=== PATIENT | male | born 1945 | race Caucasian/White ===

== ENCOUNTER 2017-08-30 11:14 | Inpatient (IN) | payer MEDICARE ==
[~2017-08-30] VITALS: Ht 175.3 cm; Wt 65.1 kg
[2017-08-30 11:35] VITALS: BP 136/97; PULSE 109; RESP 18; TEMP 98.2; O2SAT 95
--- NOTE | 2017-08-30 12:53 | PD ---
HPI Chief Complaint: Complaint Time Seen by Provider: 12:53 Travel History International Travel<30 days: No Contact w/Intl Traveler<30days: No Traveled to known affect area: No History of Present Illness HPI 71-year-old male came to the emergency room with history of hematuria and urinary retention since last night. Patient says he was passing some clots last night. This morning he tried to void and few drops came out with blood. But he was unable to empty the entire bladder. No history of fever or chills. Patient has had this issue in the past. He had a TURP procedure done to his prostate in 2003. He also has history of renal calculus although there has not been any back or abdominal pain this time. Patient is on Coumadin for A. fib. He is from [place] and his doctors and urologist is in [place]. Patient is here to visit his who lives here. But he does not know when he is going to go back. Vital sign shows tachycardia but otherwise within acceptable limits. No history of pain. He is in discomfort because of the distended bladder. [facility] Past Medical History Narrative Medical List of his past medical, surgical, social and family history is reviewed from the nursing note. Social History Tobacco Use: No Allergies-Medications (Allergen,Severity, Reaction): Coded Allergies: No Known Allergies (Unverified , 08/30/17) Comments No known drug allergies. Reported Meds & Prescriptions Reported Meds & Active Scripts Active Reported Digox (Digoxin) 0.25 Mg Tab 0.25 Mg PO HS Ranitidine (Ranitidine HCl) 150 Mg Tab 150 Mg PO BID Warfarin 2 Mg Tab 2 Mg PO SUN,SUN Warfarin 4 Mg Tab 4 Mg PO MON,TUE,KAROLINE,FRI,SAT Simvastatin 40 Mg Tab 40 Mg PO HS Atenolol 25 Mg Tab 25 Mg PO DAILY Narrative Medication List of his home medications reviewed from the nursing note. Review of Systems Except as stated in HPI: all other systems reviewed are Neg Genitourinary: Positive: Hematuria, Decreased Urinary Output Physical Exam Narrative GENERAL: Awake, alert, anxious SKIN: Focused skin assessment warm/dry. HEAD: Atraumatic. Normocephalic. EYES: Pupils equal and round. No scleral icterus. No injection or drainage. ENT: No nasal bleeding or discharge. Mucous membranes pink and moist. NECK: Trachea midline. No JVD. CARDIOVASCULAR: Regular rate and rhythm. No murmur appreciated. RESPIRATORY: No accessory muscle use. Clear to auscultation. Breath sounds equal bilaterally. GASTROINTESTINAL: Abdomen soft, non-tender, nondistended. Suprapubic palpable mass extending all the way up to the umbilicus which is tender to touch MUSCULOSKELETAL: No obvious deformities. No clubbing. No cyanosis. No edema. NEUROLOGICAL: Awake and alert. No obvious cranial nerve deficits. Motor grossly within normal limits. Normal speech. PSYCHIATRIC: Appropriate mood and affect; insight and judgment normal. Data Data Last Documented VS Vital Signs Date Time Temp Pulse Resp B/P (MAP) Pulse Ox O2 Delivery O2 Flow Rate FiO2 08/30/17 11:35 98.2 109 18 136/97 (110) 95 Orders Orders Urinary Catheter Insert/Apply (08/30/17 13:03) Urinalysis - C+S If Indicated (08/30/17 13:03) Bladder/Catheter Irrigation (08/30/17 13:04) Complete Blood Count With Diff (08/30/17 13:04) Basic Metabolic Panel (Bmp) (08/30/17 13:04) Prothrombin Time / Inr (Pt) (08/30/17 13:04) Type And Screen (08/30/17 13:04) Ct Abd/Pel W/O Iv Contrast (08/30/17 ) Sodium Chlor 0.9% 1000 Ml Inj (Ns 1000 M (08/30/17 13:15) Phytonadione Inj (Vitamin K Inj) (08/30/17 14:15) Urine Culture (08/30/17 13:35) Ceftriaxone Inj (Rocephin Inj) (08/30/17 14:30) Admit Order (Ed Use Only) (08/30/17 15:11) Labs Laboratory Tests Test 08/30/17 13:20 08/30/17 13:35 White Blood Count 12.4 TH/MM3 Red Blood Count 4.86 MIL/MM3 Hemoglobin 14.2 GM/DL Hematocrit 42.6 % Mean Corpuscular Volume 87.7 FL Mean Corpuscular Hemoglobin 29.3 PG Mean Corpuscular Hemoglobin Concent 33.4 % Red Cell Distribution Width 14.0 % Platelet Count 300 TH/MM3 Mean Platelet Volume 8.5 FL Neutrophils (%) (Auto) 74.4 % Lymphocytes (%) (Auto) 18.4 % Monocytes (%) (Auto) 6.6 % Eosinophils (%) (Auto) 0.1 % Basophils (%) (Auto) 0.5 % Neutrophils # (Auto) 9.3 TH/MM3 Lymphocytes # (Auto) 2.3 TH/MM3 Monocytes # (Auto) 0.8 TH/MM3 Eosinophils # (Auto) 0.0 TH/MM3 Basophils # (Auto) 0.1 TH/MM3 CBC Comment DIFF FINAL Differential Comment Prothrombin Time 45.3 SEC Prothromb Time International Ratio 4.5 RATIO Blood Urea Nitrogen 22 MG/DL Creatinine 1.32 MG/DL Random Glucose 100 MG/DL Calcium Level 9.8 MG/DL Sodium Level 136 MEQ/L Potassium Level 4.3 MEQ/L Chloride Level 101 MEQ/L Carbon Dioxide Level 28.2 MEQ/L Anion Gap 7 MEQ/L Estimat Glomerular Filtration Rate 53 ML/MIN Urine Color DARK-RED Urine Turbidity TURBID Urine pH 6.5 Urine Specific [place] 1.021 Urine Protein 100 mg/dL Urine Glucose (UA) NEG mg/dL Urine Ketones 10 mg/dL Urine Occult Blood MOD Urine Nitrite NEG Urine Bilirubin NEG Urine Urobilinogen LESS THAN 2.0 MG/DL Urine Leukocyte Esterase MOD Urine RBC /hpf Urine WBC /hpf Urine Mucus MANY /lpf Microscopic Urinalysis Comment CATH-CULTURE IND MDM Medical Decision Making Medical Screen Exam Complete: Yes Emergency Medical Condition: Yes Medical Record Reviewed: Yes Differential Diagnosis Prostate hypertrophy, bladder obstruction, bladder tumor Narrative Course 2:[address] scan shows distended bladder with a Hayes catheter and possible blood clot. Blood test result shows slight leukocytosis but the H&H is stable. INR is 4.5. Chemistries pending. I had ordered for Hayes catheter with continuous ladder irrigation that the nurse has been doing. She says she has been getting quite a few clots out. However given the high INR I have ordered vitamin K. In my opinion patient should require admission till the INR is stable or as per the discretion of the urologist. I put a call out for the on- call urologist. Awaiting for his call back. 2:44 PM case was discussed with the urologist Dr. Lnidquist and as per him patient would require manual irrigation. He wants the patient to be medically admitted and he'll consult on the patient. Procedures EKG Prior to Arrival: No Physician Communication Physician Communication Dr. Hanson Diagnosis Primary Impression: Urinary obstruction Additional Impressions: Hematuria Qualified Codes: R31.0 - Gross hematuria UTI (urinary tract infection) Qualified Codes: N39.0 - Urinary tract infection, site not specified; R31.9 - Hematuria, unspecified Elevated INR Admitting Information Admitting Physician Requests: Admit Scripts Levofloxacin (Levaquin) 750 Mg Tablet 750 MG PO DAILY for Infection, #6 TAB 0 Refills Prov: Ashli Mckeon MD 08/31/17 Karishma Collazo MD Aug 30, 2017 12:53
[2017-08-30] MEDS ORDERED: WARF-20 PO (12:56)
[2017-08-30] MEDS ORDERED: WARF4TAB51 PO (12:56)
[2017-08-30] MEDS ORDERED: ATEN25TA PO (12:56)
[2017-08-30] MEDS ORDERED: DIGO0.12 PO (12:56)
[2017-08-30] MEDS ORDERED: RANI150T PO (12:56)
[2017-08-30] MEDS ORDERED: SIMV40TA PO (12:56)
[2017-08-30] MEDS ORDERED: SODIUM CHLOR 0.9% 1000 ML INJ 1,000 ML IV ONE (13:15)
[2017-08-30 13:50] LABS: AUTOMATED NEUTROPHIL # 9.3 TH/MM3 (1.8-7.7); BASOPHIL # 0.1 TH/MM3 (0-0.2); BASOPHIL % 0.5 % (0.0-2.0); EOSINOPHIL % 0.1 % (0.0-4.0); HEMATOCRIT 42.6 % (39.0-51.0); HEMOGLOBIN 14.2 GM/DL (13.0-17.0); LYMPH % 18.4 % (9.0-44.0); LYMPHOCYTE # 2.3 TH/MM3 (1.0-4.8); MEAN CELL VOLUME 87.7 FL (80.0-100.0); MEAN CORPUSCULAR HEMOGLOBIN 29.3 PG (27.0-34.0); MEAN CORPUSCULAR HGB CONC 33.4 % (32.0-36.0); MEAN PLATELET VOLUME 8.5 FL (7.0-11.0); MONO % 6.6 % (0.0-8.0); MONOCYTE # 0.8 TH/MM3 (0-0.9); NEUT % 74.4 % (16.0-70.0); PLATELET COUNT 300 TH/MM3 (150-450); RED BLOOD COUNT 4.86 MIL/MM3 (4.50-5.90); WHITE BLOOD COUNT 12.4 TH/MM3 (4.0-11.0)
[2017-08-30 13:57] LABS: INTERNATIONAL NORMALIZED RATIO 4.5 RATIO; PROTHROMBIN TIME - PATIENT 45.3 SEC (9.8-11.6)
--- NOTE | 2017-08-30 14:05 | RADRPT ---
EXAM DATE/TIME: 08/30/2017 13:43 [place] COMPARISON: No previous studies available for comparison. INDICATIONS : Hematuria ORAL CONTRAST: No oral contrast ingested. RADIATION DOSE: 6.57 CTDIvol (mGy) MEDICAL HISTORY : Gastroesophageal reflux disease. Atrial fibrillation SURGICAL HISTORY : None. ENCOUNTER: Initial ACUITY: 2 days PAIN SCALE: 4/10 LOCATION: Bilateral Abdomen TECHNIQUE: Volumetric scanning of the abdomen and pelvis was performed. Using automated exposure control and ad justment of the mA and/or kV according to patient size, radiation dose was kept as low as reasonably achievable to obtain optimal diagnostic quality images. DICOM format image data is available electro nically for review and comparison. FINDINGS: LOWER LUNGS: The visualized lower lungs are clear. LIVER: Homogeneous density without lesion. There is no dilation of the biliary tree. No calcified gallston es. SPLEEN: Normal size without lesion. PANCREAS: Within normal limits. KIDNEYS: Normal in size and shape. There is no mass, stone, or hydronephrosis. ADRENAL GLANDS: Within normal limits. VASCULAR: There is no aortic aneurysm. BOWEL/MESENTERY: The stomach, small bowel, and colon demonstrate no acute abnormality. There is no free intraperitone al air or fluid. ABDOMINAL WALL: Within normal limits. RETROPERITONEUM: There is no lymphadenopathy. BLADDER: The prostate is quite enlarged. There is a Hayes catheter in place. There is some increased density w ithin the bladder presumably a blood clot. REPRODUCTIVE: Within normal limits. INGUINAL: There is no lymphadenopathy or hernia. MUSCULOSKELETAL: Small sclerotic area right-sided L4 I suspect a bone island. CONCLUSION: The prostate is quite enlarged. Hayes catheter in place. Increased density within the bladder presuma chiquis large blood clot. No obvious bladder wall mass identified. Small lymph nodes throughout the retro peritoneum. Mathew Pantoja MD on August 30, 2017 at 14:01 Board Certified Radiologist. This report was verified electronically.
[2017-08-30 14:11] LABS: BICARBONATE 28.2 MEQ/L (21.0-32.0); CALCIUM 9.8 MG/DL (8.5-10.1); CREATININE 1.32 MG/DL (0.60-1.30)
[2017-08-30] MEDS ORDERED: PHYTONADIONE 10 MG/ML VIAL SQ ONE (14:15)
[2017-08-30 14:17] LABS: BILIRUBIN, URINE NEG (NEG); BLOOD, URINE MOD (NEG); GLUCOSE,URINE NEG (NEG); KETONE, URINE 10 mg/dL (NEG); MUCUS URINE MANY /lpf (OCC); NITRITE,URINE NEG (NEG); PH, URINE 6.5 (5.0-8.5); URINE COLOR DARK-RED (YELLW/STRAW); URINE LEUKOCYTE ESTERASE MOD (NEG)
[2017-08-30] MEDS ORDERED: cefTRIAXone INJ 1,000 MG in SODIUM CHLORIDE 0.9% INJ 100 ML IV ONE (14:30)
[2017-08-30 16:48] VITALS: BP 137/82; PULSE 85; RESP 16; O2SAT 96
[2017-08-30] MEDS ORDERED: BISACODYL 10 MG SUPP RECTAL PRN (17:00)
[2017-08-30] MEDS ORDERED: LACTULOSE SYRUP 20 GM/30 ML CUP PO PRN (17:00)
[2017-08-30] MEDS ORDERED: ONDANSETRON HCL 4 MG/2 ML VIAL IVP PRN (17:00)
[2017-08-30] MEDS ORDERED: SODIUM CHLORIDE 0.9% FLUSH 10 ML FLUSH IV FLUSH PRN (17:00)
[2017-08-30] MEDS ORDERED: NALOXONE HCL 0.4 MG/ML AMP IV PUSH PRN (17:00)
[2017-08-30] MEDS ORDERED: ACETAMINOPHEN 325 MG TAB PO PRN ×2 (17:00→19:00)
[2017-08-30] MEDS ORDERED: MAGNESIUM HYDROXIDE SUSP 30 ML CUP PO PRN (17:00)
[2017-08-30] MEDS ORDERED: SENNOSIDES 8.6 MG TAB PO PRN (17:00)
--- NOTE | 2017-08-30 17:34 | HHI.HP ---
HPI Service [facility] Hospital[facility] Primary Care Physician No Primary Care Physician Admission Diagnosis urinary retention, hematuria, UTI, elevated INR Diagnoses: Chief Complaint: Hematuria Travel History International Travel<30 Days: No Contact w/Intl Traveler <30 Da: No Traveled to Known Affected Are: No History of Present Illness This is a 71-year-old male with past medical history significant for atrial fibrillation on chronic articulation with Coumadin who presents to [facility] complaining of hematuria associated with clots. The patient states hematuria started 1 day ago, last night he was passing some clots. However he states that this morning when he tried to void a few drops came out with blood and then he was unable to urinate and empty his bladder. The patient denies any history of fevers or chills. The patient states he has had similar problems in the past. Patient has history of BPH and has had a TURP procedure done to his prostate in 2003. The patient was seen in the emergency department and evaluated found to have an INR of 4. Merritt catheter was placed. ED physician communicated with Dr. Baker who recommended admission. The patient otherwise denies any chest pain, shortness of breath, fevers, chills, abdominal pain, nausea vomiting. Review of Systems As per HPI, other systems reviewed by me and negative. Past Family Social History Past Medical History 1. Dementia. 2. History of CVA. 3. Gastroesophageal reflux. 4. Atrial fibrillation on chronic articulation with Coumadin. 5. Skin cancer 6. BPH. 7. Hypertension. 8. Hyperlipidemia. Past Surgical History 1. TURP 2. Cardiac abaltion x4 for a fib Reported Medications Reported Meds & Active Scripts Active Reported Ranitidine (Ranitidine HCl) 150 Mg Tab 150 Mg PO BID Digoxin 0.125 Mg Tab 0.125 Mg PO DAILY Warfarin 2 Mg Tab 2 Mg PO SUN,WED Warfarin 4 Mg Tab 4 Mg PO MON,TUE,KAROLINE,FRI,SAT Simvastatin 40 Mg Tab 40 Mg PO HS Atenolol 25 Mg Tab 25 Mg PO DAILY Allergies: Coded Allergies: No Known Allergies (Unverified , 08/30/17) Active Ordered Medications Current Medications Medications (Trade) Dose Ordered Sig/Bernardo Route Start Time Stop Time Status Last Admin (NS Flush) 2 ml UNSCH PRN IV FLUSH 08/30/17 17:00 UNV (NS Flush) 2 ml BID IV FLUSH 08/30/17 21:00 UNV (Tylenol) 650 mg Q4H PRN PO 08/30/17 17:00 (Zofran Inj) 4 mg Q6H PRN IVP 08/30/17 17:00 UNV (Narcan Inj) 0.4 mg UNSCH PRN IV PUSH 08/30/17 17:00 UNV (Katia-Colace) 1 tab BID PO 08/30/17 21:00 UNV (Milk Of Magnesia Liq) 30 ml Q12H PRN PO 08/30/17 17:00 UNV (Senokot) 17.2 mg Q12H PRN PO 08/30/17 17:00 UNV (Dulcolax Supp) 10 mg DAILY PRN RECTAL 08/30/17 17:00 (Lactulose Liq) 30 ml DAILY PRN PO 08/30/17 17:00 UNV Family History Father from ENT Cancer Social History Drinks alcohol rarely. Denies smoking cigarettes. Smokes Marihuana occasionally. Denies other illicit drug use. Physical Exam Vital Signs Vital Signs Date Time Temp Pulse Resp B/P (MAP) Pulse Ox O2 Delivery O2 Flow Rate FiO2 08/30/17 16:48 85 16 137/82 (100) 96 Room Air 08/30/17 11:35 98.2 109 18 136/97 (110) 95 Physical Exam GENERAL: This is a well-nourished, well-developed patient, in no apparent distress. SKIN: No rashes, ecchymoses or lesions. Cool and dry. HEAD: Atraumatic. Normocephalic. No temporal or scalp tenderness. EYES: Pupils equal round and reactive. Extraocular motions intact. No scleral icterus. No injection or drainage. ENT: Nose without bleeding, purulent drainage or septal hematoma. Throat without erythema, tonsillar hypertrophy or exudate. Uvula midline. Airway patent. NECK: Trachea midline. No JVD or lymphadenopathy. Supple, nontender, no meningeal signs. CARDIOVASCULAR: Regular rate and rhythm without murmurs, gallops, or rubs. RESPIRATORY: Clear to auscultation. Breath sounds equal bilaterally. No wheezes , rales, or rhonchi. GASTROINTESTINAL: Abdomen soft, non-tender, nondistended. No hepato-splenomegaly , or palpable masses. No guarding. MUSCULOSKELETAL: Extremities without clubbing, cyanosis, or edema. No joint tenderness, effusion, or edema noted. No calf tenderness. Negative Homans sign bilaterally. NEUROLOGICAL: Awake and alert. Cranial nerves II through XII intact. Motor and sensory grossly within normal limits. Five out of 5 muscle strength in all muscle groups. Normal speech. merritt catheter in place with hematuria and no clots observed in bag. Laboratory Laboratory Tests Test 08/30/17 13:20 08/30/17 13:35 White Blood Count 12.4 Red Blood Count 4.86 Hemoglobin 14.2 Hematocrit 42.6 Mean Corpuscular Volume 87.7 Mean Corpuscular Hemoglobin 29.3 Mean Corpuscular Hemoglobin Concent 33.4 Red Cell Distribution Width 14.0 Platelet Count 300 Mean Platelet Volume 8.5 Neutrophils (%) (Auto) 74.4 Lymphocytes (%) (Auto) 18.4 Monocytes (%) (Auto) 6.6 Eosinophils (%) (Auto) 0.1 Basophils (%) (Auto) 0.5 Neutrophils # (Auto) 9.3 Lymphocytes # (Auto) 2.3 Monocytes # (Auto) 0.8 Eosinophils # (Auto) 0.0 Basophils # (Auto) 0.1 CBC Comment DIFF FINAL Differential Comment Prothrombin Time 45.3 Prothromb Time International Ratio 4.5 Blood Urea Nitrogen 22 Creatinine 1.32 Random Glucose 100 Calcium Level 9.8 Sodium Level 136 Potassium Level 4.3 Chloride Level 101 Carbon Dioxide Level 28.2 Anion Gap 7 Estimat Glomerular Filtration Rate 53 Urine Color DARK-RED Urine Turbidity TURBID Urine pH 6.5 Urine Specific [place] 1.021 Urine Protein 100 Urine Glucose (UA) NEG Urine Ketones 10 Urine Occult Blood MOD Urine Nitrite NEG Urine Bilirubin NEG Urine Urobilinogen LESS THAN 2.0 Urine Leukocyte Esterase MOD Urine RBC Urine WBC Urine Mucus MANY Microscopic Urinalysis Comment CATH-CULTURE IND Date/Time Source Procedure Growth Status 08/30/17 13:35 Urine Catheterized Urine Urine Culture Pending Received Result Diagram: 08/30/17 1320 08/30/17 1320 Imaging Last Impressions Abdomen/Pelvis CT 08/30/17 0000 Signed Impressions: Service Date/Time: August 13:43 - CONCLUSION: The prostate is quite enlarged. Merritt catheter in place. Increased density within the bladder presumably large blood clot. No obvious bladder wall mass identified. Small lymph nodes throughout the retroperitoneum. Mathew Pantoja MD Reviewed by me Rankin VTE Risk Assessment Capdru VTE Risk Assessment: Mod/High Risk (score >= 2) VTE Pharm Contraindication: Coagulopathy,INR elevated Caprini Risk Assessment Model Point Value = 1 Point Value = 2 Point Value = 3 Point Value = 5 Age 41-60 Minor surgery BMI > 25 kg/m2 Swollen legs Varicose veins or History of unexplained or recurrent spontaneous Oral contraceptives or hormone replacement Sepsis (< 1 month) Serious lung disease, including pneumonia (< 1 month) Abnormal pulmonary function Acute myocardial infarction Congestive heart failure (< 1 month) History of inflammatory bowel disease Medical patient at bed rest Age 61-74 Arthroscopic surgery Major open surgery (> 45 min) Laparoscopic surgery (> 45 min) Malignancy Confined to bed (> 72 hours) Immobilizing plaster cast Central venous access Age >= 75 History of VTE Family history of VTE Factor V Leiden Prothrombin [id number] Lupus anticoagulant Anticardiolipin antibodies Elevated serum homocysteine Heparin-induced thrombocytopenia Other congenital or acquired thrombophilia Stroke (< 1 month) Elective arthroplasty Hip, pelvis, or leg fracture Acute spinal cord injury (< 1 month) Prophylaxis Regimen Total Risk Factor Score Risk Level Prophylaxis Regimen 0-1 Low Early ambulation 2 Moderate Order ONE of the following: *Sequential Compression Device (SCD) *Heparin 5000 units SQ BID 3-4 Higher Order ONE of the following medications: *Heparin 5000 units SQ TID *Enoxaparin/Lovenox 40 mg SQ daily (WT < 150 kg, CrCl > 30 mL/min) *Enoxaparin/Lovenox 30 mg SQ daily (WT < 150 kg, CrCl > 10-29 mL/min) *Enoxaparin/Lovenox 30 mg SQ BID (WT < 150 kg, CrCl > 30 mL/min) AND/OR *Sequential Compression Device (SCD) 5 or more Highest Order ONE of the following medications: *Heparin 5000 units SQ TID (Preferred with Epidurals) *Enoxaparin/Lovenox 40 mg SQ daily (WT < 150 kg, CrCl > 30 mL/min) *Enoxaparin/Lovenox 30 mg SQ daily (WT < 150 kg, CrCl > 10-29 mL/min) *Enoxaparin/Lovenox 30 mg SQ BID (WT < 150 kg, CrCl > 30 mL/min) AND *Sequential Compression Device (SCD) Assessment and Plan Problem List: (1) Hematuria ICD Code: R31.9 - Hematuria, unspecified Status: Acute Plan: Possibly secondary to supratherapeutic INR and suspected UTI. Admit the patient to the medical floor. Consult urology Continue CBI. (2) Urinary obstruction ICD Code: N13.9 - Obstructive and reflux uropathy, unspecified Status: Acute Plan: Merritt catheter placed. Continue. Urology consultation. (3) UTI (urinary tract infection) ICD Code: N39.0 - Urinary tract infection, site not specified Status: Acute (4) Elevated INR ICD Code: R79.1 - Abnormal coagulation profile Status: Acute Plan: INR 4.5. Hold Coumadin. hematuria improving with CBI - Will not transfuse with FFP. Monitor PT/INR daily. (5) WILLIE (acute kidney injury) ICD Code: N17.9 - Acute kidney failure, unspecified Plan: Possibly secondary to urinary retention due to BPH. Start the patient on Flomax 0.4 mg p.o. at bedtime. Creatinine 1.32 on admission. No baseline creatinine for comparison. Merritt catheter placed, continue. Will place on IV fluids and monitor BUN and creatinine, history I's and O's. Avoid nephrotoxins (6) HTN (hypertension) ICD Code: I10 - Essential (primary) hypertension Plan: Blood pressure seems to be stable. Continue atenolol. (7) Hyperlipidemia ICD Code: E78.5 - Hyperlipidemia, unspecified Plan: Continue statin. Check fasting lipid profile. Assessment and Plan DVT prophylaxis: SCDs, chemoprophylaxis contraindicated due to supratherapeutic INR and active bleeding. Code Status Full code Physician Certification 2 Midnight Certification Type: Admission for Inpatient Services Order for Inpatient Services The services are ordered in accordance with Medicare regulations or non- Medicare payer requirements, as applicable. In the case of services not specified as inpatient-only, they are appropriately provided as inpatient services in accordance with the 2-midnight benchmark. Estimated LOS (days): 2 days is the estimated time the patient will need to remain in the hospital, assuming treatment plan goals are met and no additional complications. Post-Hospital Plan: Not yet determined Problem Qualifiers (1) Hematuria: Qualified Codes: R31.0 - Gross hematuria (2) UTI (urinary tract infection): Qualified Codes: N39.0 - Urinary tract infection, site not specified; R31.9 - Hematuria, unspecified (3) HTN (hypertension): Qualified Codes: I10 - Essential (primary) hypertension (4) Hyperlipidemia: Qualified Codes: E78.5 - Hyperlipidemia, unspecified Guicho Loza MD Aug 30, 2017 17:34
[2017-08-30 18:15] VITALS: BP 131/88; PULSE 102; RESP 20; TEMP 98.1; O2SAT 98
[2017-08-30] MEDS ORDERED: FUROSEMIDE 20 MG/2 ML VIAL IV PUSH ONE (19:00)
[2017-08-30] MEDS ORDERED: SODIUM CHLOR 0.9% 250 ML INJ 250 ML IV ONE (19:00)
[2017-08-30] MEDS ORDERED: diphenhydrAMINE HCL 25 MG CAP PO PRN (19:00)
[2017-08-30 20:00] VITALS: BP 111/78; PULSE 105; RESP 18; TEMP 98; O2SAT 98
[2017-08-30] MEDS ORDERED: PRAVASTATIN SOD 80 MG TAB PO SCH (21:00)
[2017-08-30] MEDS: FAMOTIDINE 20 MG TAB PO SCH (21:59)
[2017-08-30] MEDS: DOCUSATE SODIUM 50 MG/SENNA 8.6 MG TAB PO SCH (22:00)
[2017-08-30] MEDS: SODIUM CHLORIDE 0.9% FLUSH 10 ML FLUSH IV FLUSH SCH (22:01)
[2017-08-30] MEDS ORDERED: DIGO0.259 PO (22:17)
[2017-08-30] MEDS ORDERED: DIGOXIN 0.25 MG TAB PO ONE (22:45)
[2017-08-31] VITALS: BP 106/72; PULSE 105; RESP 18; TEMP 97.8; O2SAT 96
[2017-08-31 04:00] VITALS: BP 110/75; PULSE 107; RESP 18; TEMP 98.2; O2SAT 95
[2017-08-31 08:00] VITALS: BP 116/75; PULSE 109; RESP 20; TEMP 98.2; O2SAT 96
[2017-08-31 08:04] LABS: AUTOMATED NEUTROPHIL # 6.4 TH/MM3 (1.8-7.7); BASOPHIL # 0.1 TH/MM3 (0-0.2); BASOPHIL % 0.5 % (0.0-2.0); EOSINOPHIL # 0.1 TH/MM3 (0-0.4); EOSINOPHIL % 1.1 % (0.0-4.0); HEMOGLOBIN 13.6 GM/DL (13.0-17.0); LYMPH % 22.7 % (9.0-44.0); LYMPHOCYTE # 2.2 TH/MM3 (1.0-4.8); MEAN CORPUSCULAR HEMOGLOBIN 29.9 PG (27.0-34.0); MEAN PLATELET VOLUME 8.4 FL (7.0-11.0); MONO % 9.7 % (0.0-8.0); MONOCYTE # 0.9 TH/MM3 (0-0.9); PLATELET COUNT 220 TH/MM3 (150-450); RED BLOOD COUNT 4.54 MIL/MM3 (4.50-5.90); WHITE BLOOD COUNT 9.8 TH/MM3 (4.0-11.0)
--- NOTE | 2017-08-31 08:09 | HHI.PR ---
Subjective Remarks The patient is in bed. He appears to not acute distress. Denies any fever or chills. No suprapubic pain. Says he feels much better and urine is clearing up. Now there is clear urine urine coming out of Merritt. He denies any chest pain, palpitations, lightheadedness. No shortness of breath. No back pain or abdominal pain. Feels comfortable to go home he will follow-up with Dr. Hanson urology as outpatient on Sunday Objective Vitals Vital Signs Date Time Temp Pulse Resp B/P (MAP) Pulse Ox O2 Delivery O2 Flow Rate FiO2 08/31/17 04:00 98.2 107 18 110/75 (87) 95 08/31/17 00:00 97.8 105 18 106/72 (83) 96 08/30/17 20:00 98.0 105 18 111/78 (89) 98 08/30/17 18:15 98.1 102 20 131/88 (102) 98 08/30/17 16:48 85 16 137/82 (100) 96 Room Air 08/30/17 11:35 98.2 109 18 136/97 (110) 95 I/O 08/30/17 08/30/17 08/30/17 08/31/17 08/31/17 08/31/17 07:00 15:00 23:00 07:00 15:00 23:00 Intake Total 320 ml Output Total 2250 ml 1001 ml Balance -2250 ml -681 ml Intake Oral 320 ml Output Urine Total 2250 ml 1000 ml Stool Total 1 ml Result Diagram: 08/31/17 0621 08/30/17 1320 Imaging Last Impressions Abdomen/Pelvis CT 08/30/17 0000 Signed Impressions: Service Date/Time: August 13:43 - CONCLUSION: The prostate is quite enlarged. Merritt catheter in place. Increased density within the bladder presumably large blood clot. No obvious bladder wall mass identified. Small lymph nodes throughout the retroperitoneum. Mathew Pantoja MD Objective Remarks GENERAL: This is a well-nourished, well-developed patient, in no apparent distress. CARDIOVASCULAR: Regular rate and rhythm without murmurs, gallops, or rubs. RESPIRATORY: Clear to auscultation. Breath sounds equal bilaterally. No wheezes , rales, or rhonchi. GASTROINTESTINAL: Abdomen soft, non-tender, nondistended. No hepato-splenomegaly , or palpable masses. No guarding. MUSCULOSKELETAL: Extremities without clubbing, cyanosis, or edema. No joint tenderness, effusion, or edema noted. No calf tenderness. Negative Homans sign bilaterally. NEUROLOGICAL: Awake and alert. Cranial nerves II through XII intact. Motor and sensory grossly within normal limits. Five out of 5 muscle strength in all muscle groups. Normal speech. merritt catheter in place with with pink urine, now clear urine coming out. A/P Problem List: (1) Hematuria ICD Code: R31.9 - Hematuria, unspecified Status: Acute (2) Urinary obstruction ICD Code: N13.9 - Obstructive and reflux uropathy, unspecified Status: Acute (3) UTI (urinary tract infection) ICD Code: N39.0 - Urinary tract infection, site not specified Status: Acute (4) Elevated INR ICD Code: R79.1 - Abnormal coagulation profile Status: Acute (5) WILLIE (acute kidney injury) ICD Code: N17.9 - Acute kidney failure, unspecified (6) HTN (hypertension) ICD Code: I10 - Essential (primary) hypertension (7) Hyperlipidemia ICD Code: E78.5 - Hyperlipidemia, unspecified Assessment and Plan (1) Hematuria. Resolved ICD Code: R31.9 - Hematuria, unspecified Status: Acute Plan: Possibly secondary to supratherapeutic INR at 4.5 on admission and suspected UTI. Admit the patient to the medical floor. Consult urology, appreciate recommendations . Was seen by ARTUR Matute to DC patient and to follow up with him as ON in his Office on Sunday Continue CBI.DC as clear urine. (2) Urinary obstruction ICD Code: N13.9 - Obstructive and reflux uropathy, unspecified Status: Acute Plan: Merritt catheter placed. Continue. Urology consultation. (3) UTI (urinary tract infection) ICD Code: N39.0 - Urinary tract infection, site not specified. Continue antibiotic PO at discharge per Dr Hanson urology Status: Acute (4) Elevated INR ICD Code: R79.1 - Abnormal coagulation profile Status: Acute Plan: INR 4.5. Coumadin held now hematuria resolved. Can cont Coumadin as OP. hematuria improving with CBI - Will not transfuse with FFP. Monitor PT/INR daily. (5) WILLIE (acute kidney injury) ICD Code: N17.9 - Acute kidney failure, unspecified Plan: Possibly secondary to urinary retention due to BPH. Start the patient on Flomax 0.4 mg p.o. at bedtime. Creatinine 1.32 on admission. No baseline creatinine for comparison. Improved. Merritt catheter placed, continue. Will place on IV fluids and monitor BUN and creatinine, history I's and O's. Avoid nephrotoxins (6) HTN (hypertension) ICD Code: I10 - Essential (primary) hypertension Plan: Blood pressure seems to be stable. Continue atenolol. (7) Hyperlipidemia ICD Code: E78.5 - Hyperlipidemia, unspecified Plan: Continue statin. Check fasting lipid profile. Assessment and Plan DVT prophylaxis: SCD Code Status Full code Discussed with the patient, nurse Plan to discharge home for follow-up with PCP and Dr. Hanson urology as outpatient on Sunday Problem Qualifiers (1) Hematuria: Qualified Codes: R31.0 - Gross hematuria (2) UTI (urinary tract infection): Qualified Codes: N39.0 - Urinary tract infection, site not specified; R31.9 - Hematuria, unspecified (3) HTN (hypertension): Qualified Codes: I10 - Essential (primary) hypertension (4) Hyperlipidemia: Qualified Codes: E78.5 - Hyperlipidemia, unspecified Ashli Mckeon MD Aug 31, 2017 08:09
[2017-08-31 08:33] LABS: ALBUMIN 3.6 GM/DL (3.4-5.0); AST (GOT) 21 U/L (15-37); BICARBONATE 24.7 MEQ/L (21.0-32.0); BLOOD UREA NITROGEN 13 MG/DL (7-18); CALCIUM 8.9 MG/DL (8.5-10.1); CHLORIDE 104 MEQ/L (98-107); CREATININE 1.02 MG/DL (0.60-1.30); GLOMERULAR FILTRATION RATE 72 ML/MIN (>89); GLUCOSE,RANDOM 80 MG/DL (74-106); SODIUM (NA) 139 MEQ/L (136-145)
[2017-08-31 08:37] LABS: ALKALINE PHOSPHATASE 64 U/L (45-117); ALT (GPT) 14 U/L (12-78); TOTAL BILIRUBIN ADULT 0.6 MG/DL (0.2-1.0); TOTAL PROTEIN 6.8 GM/DL (6.4-8.2)
[2017-08-31] MEDS: SODIUM CHLORIDE 0.9% FLUSH 10 ML FLUSH IV FLUSH SCH (09:00)
[2017-08-31] MEDS ORDERED: DIGOXIN 0.125 MG TAB PO SCH (09:00)
[2017-08-31] MEDS ORDERED: ATENOLOL 25 MG TAB PO SCH (09:00)
[2017-08-31] MEDS: DOCUSATE SODIUM 50 MG/SENNA 8.6 MG TAB PO SCH (09:20)
[2017-08-31] MEDS: FAMOTIDINE 20 MG TAB PO SCH (09:20)
--- NOTE | 2017-08-31 11:18 | PD.CONS ---
[facility] Service Urology Consult Requested By Dr. Collazo Reason for Consult Gross hematuria Primary Care Physician No Primary Care Physician Diagnosis: (1) Hematuria ICD Code: R31.9 - Hematuria, unspecified (2) Urinary obstruction ICD Code: N13.9 - Obstructive and reflux uropathy, unspecified (3) UTI (urinary tract infection) ICD Code: N39.0 - Urinary tract infection, site not specified (4) Elevated INR ICD Code: R79.1 - Abnormal coagulation profile (5) WILLIE (acute kidney injury) ICD Code: N17.9 - Acute kidney failure, unspecified (6) HTN (hypertension) ICD Code: I10 - Essential (primary) hypertension (7) Hyperlipidemia ICD Code: E78.5 - Hyperlipidemia, unspecified History of Present Illness 71-year-old gentleman with history BPH and atrial fibrillation on anticoagulation who presented to emergency room with gross hematuria and difficulty urinating. Patient reports having recurrent episodes of gross hematuria related to his anticoagulation therapy over the past several years. Patient is status post a TURP back in 2003. Preliminary workup in the emergency room included lab studies that demonstrated an elevated INR of 4.5, urinalysis consistent with UTI and a CT scan of the abdomen and pelvis that demonstrated normal-appearing kidneys and a likely clot within the urinary bladder. Patient had his bladder evacuated in the emergency room and was subsequently placed on continuous bladder irrigation. At the time of consultation the patient was resting comfortably in bed. He reported that the hematuria had almost completely abated. Review of Systems Constitutional: DENIES: Fever, Chills Cardiovascular: DENIES: Chest pain Gastrointestinal: DENIES: Abdominal pain Genitourinary: COMPLAINS OF: Hematuria Musculoskeletal: DENIES: Back pain Except as stated in HPI: all other systems reviewed are Neg Past Family Social History Past Medical History BPH Dementia History CVA Atrial fibrillation GERD Skin cancer Hyperlipidemia Hypertension Past Surgical History Status post TURP 2003 Status post cardiac ablative procedure for atrial fibrillation Reported Medications Refer to EMR Allergies: Coded Allergies: No Known Allergies (Unverified , 08/30/17) Active Ordered Medications Refer to EMR Family History Father from ENT related cancer Social History Occasional alcohol use Occasional marijuana use Denies tobacco use Physical Exam Vital Signs Date Time Temp Pulse Resp B/P (MAP) Pulse Ox O2 Delivery O2 Flow Rate FiO2 08/31/17 04:00 98.2 107 18 110/75 (87) 95 08/31/17 00:00 97.8 105 18 106/72 (83) 96 08/30/17 20:00 98.0 105 18 111/78 (89) 98 08/30/17 18:15 98.1 102 20 131/88 (102) 98 08/30/17 16:48 85 16 137/82 (100) 96 Room Air 08/30/17 11:35 98.2 109 18 136/97 (110) 95 Physical Exam GENERAL: This is a well-nourished, well-developed patient, in no apparent distress. SKIN: No rashes, ecchymoses or lesions. Cool and dry. HEAD: Atraumatic. Normocephalic. No temporal or scalp tenderness. EYES: Pupils equal round and reactive. Extraocular motions intact. No scleral icterus. No injection or drainage. ENT: Nose without bleeding, purulent drainage or septal hematoma. Throat without erythema, tonsillar hypertrophy or exudate. Uvula midline. Airway patent. NECK: Trachea midline. No JVD or lymphadenopathy. Supple, nontender, no meningeal signs. GASTROINTESTINAL: Abdomen soft, non-tender, nondistended. No hepato-splenomegaly , or palpable masses. No guarding. GENITOURINARY: Bladder not distended, continuous bladder irrigation running at a very slow rate with light pink output. MUSCULOSKELETAL: Extremities without clubbing, cyanosis, or edema. No joint tenderness, effusion, or edema noted. No calf tenderness. Negative Homans sign bilaterally. NEUROLOGICAL: Awake and alert. Cranial nerves II through XII intact. Motor and sensory grossly within normal limits. Five out of 5 muscle strength in all muscle groups. Normal speech. Lab results reviewed: Yes Laboratory Tests Test 08/30/17 13:20 08/30/17 13:35 08/31/17 02:10 08/31/17 06:21 White Blood Count 12.4 9.8 Red Blood Count 4.86 4.54 Hemoglobin 14.2 13.6 Hematocrit 42.6 40.0 Mean Corpuscular Volume 87.7 88.0 Mean Corpuscular Hemoglobin 29.3 29.9 Mean Corpuscular Hemoglobin Concent 33.4 34.0 Red Cell Distribution Width 14.0 14.0 Platelet Count 300 220 Mean Platelet Volume 8.5 8.4 Neutrophils (%) (Auto) 74.4 66.0 Lymphocytes (%) (Auto) 18.4 22.7 Monocytes (%) (Auto) 6.6 9.7 Eosinophils (%) (Auto) 0.1 1.1 Basophils (%) (Auto) 0.5 0.5 Neutrophils # (Auto) 9.3 6.4 Lymphocytes # (Auto) 2.3 2.2 Monocytes # (Auto) 0.8 0.9 Eosinophils # (Auto) 0.0 0.1 Basophils # (Auto) 0.1 0.1 CBC Comment DIFF FINAL DIFF FINAL Differential Comment Prothrombin Time 45.3 Prothromb Time International Ratio 4.5 Blood Urea Nitrogen 22 13 Creatinine 1.32 1.02 Random Glucose 100 80 Calcium Level 9.8 8.9 Sodium Level 136 139 Potassium Level 4.3 4.2 Chloride Level 101 104 Carbon Dioxide Level 28.2 24.7 Anion Gap 7 10 Estimat Glomerular Filtration Rate 53 72 Urine Color DARK-RED Urine Turbidity TURBID Urine pH 6.5 Urine Specific [place] 1.021 Urine Protein 100 Urine Glucose (UA) NEG Urine Ketones 10 Urine Occult Blood MOD Urine Nitrite NEG Urine Bilirubin NEG Urine Urobilinogen LESS THAN 2.0 Urine Leukocyte Esterase MOD Urine RBC Urine WBC Urine Mucus MANY Microscopic Urinalysis Comment CATH-CULTURE IND Lactic Acid Level 0.8 Total Protein 6.8 Albumin 3.6 Alkaline Phosphatase 64 Aspartate Amino Transf (AST/SGOT) 21 Alanine Aminotransferase (ALT/SGPT) 14 Total Bilirubin 0.6 Date/Time Source Procedure Growth Status 08/30/17 13:35 Urine Catheterized Urine Urine Culture Pending Received Result Diagram: 08/31/17 0621 08/31/17 0621 Personally reviewed images: Yes Imaging Last Impressions Abdomen/Pelvis CT 08/30/17 0000 Signed Impressions: Service Date/Time: August 13:43 - CONCLUSION: The prostate is quite enlarged. Hayes catheter in place. Increased density within the bladder presumably large blood clot. No obvious bladder wall mass identified. Small lymph nodes throughout the retroperitoneum. Mathew Pantoja MD Assessment and Plan Assessment and Plan Urologic impression: #1 resolving gross hematuria related to anticoagulation therapy with elevation of the INR #2 urinary tract infection #3 history BPH status post TURP Recommendations: 1. Titrate off the CBI 2. Okay to discharge home with Hayes catheter to leg bag when CBI discontinued and urine yellow in appearance 3. Continue antibiotic therapy and switch over to oral meds prior to hospital discharge 4. Follow-up at my office next Sunday to have his Hayes catheter removed by my office nurse [phone] Problem Qualifiers (1) Hematuria: Qualified Codes: R31.0 - Gross hematuria (2) UTI (urinary tract infection): Qualified Codes: N39.0 - Urinary tract infection, site not specified; R31.9 - Hematuria, unspecified (3) HTN (hypertension): Qualified Codes: I10 - Essential (primary) hypertension (4) Hyperlipidemia: Qualified Codes: E78.5 - Hyperlipidemia, unspecified Joseluis Hanson MD Aug 31, 2017 11:18
[2017-08-31 12:00] VITALS: BP 114/79; PULSE 104; RESP 20; TEMP 98.7; O2SAT 95
[2017-08-31] MEDS ORDERED: LEVA750T9 PO (12:50)
--- NOTE | 2017-08-31 12:51 | HHI.DS ---
Discharge Summary Admission Date Aug 30, 2017 at 15:13 Discharge Date: Aug 31, 2017 Admitting Diagnosis urinary retention, hematuria, UTI, elevated INR (1) Hematuria ICD Code: R31.9 - Hematuria, unspecified Status: Acute (2) Urinary obstruction ICD Code: N13.9 - Obstructive and reflux uropathy, unspecified Status: Acute (3) UTI (urinary tract infection) ICD Code: N39.0 - Urinary tract infection, site not specified Status: Acute (4) Elevated INR ICD Code: R79.1 - Abnormal coagulation profile Status: Acute (5) WILLIE (acute kidney injury) ICD Code: N17.9 - Acute kidney failure, unspecified (6) HTN (hypertension) ICD Code: I10 - Essential (primary) hypertension (7) Hyperlipidemia ICD Code: E78.5 - Hyperlipidemia, unspecified Procedures none Brief History - From Admission This is a 71-year-old male with past medical history significant for atrial fibrillation on chronic articulation with Coumadin who presents to [facility] complaining of hematuria associated with clots. The patient states hematuria started 1 day ago, last night he was passing some clots. However he states that this morning when he tried to void a few drops came out with blood and then he was unable to urinate and empty his bladder. The patient denies any history of fevers or chills. The patient states he has had similar problems in the past. Patient has history of BPH and has had a TURP procedure done to his prostate in 2003. The patient was seen in the emergency department and evaluated found to have an INR of 4. Merritt catheter was placed. ED physician communicated with Dr. Baker who recommended admission. The patient otherwise denies any chest pain, shortness of breath, fevers, chills, abdominal pain, nausea vomiting. CBC/BMP: 08/31/17 0621 08/31/17 0621 Significant Findings Laboratory Tests Test 08/30/17 13:20 08/30/17 13:35 08/31/17 02:10 08/31/17 06:21 White Blood Count 12.4 TH/MM3 (4.0-11.0) Neutrophils (%) (Auto) 74.4 % (16.0-70.0) Neutrophils # (Auto) 9.3 TH/MM3 (1.8-7.7) Prothrombin Time 45.3 SEC (9.8-11.6) Blood Urea Nitrogen 22 MG/DL (7-18) Creatinine 1.32 MG/DL (0.60-1.30) Estimat Glomerular Filtration Rate 53 ML/MIN (>89) 72 ML/MIN (>89) Urine Color DARK-RED (YELLW/STRAW) Urine Protein 100 mg/dL (NEG-TRACE) Urine Ketones 10 mg/dL (NEG) Urine Occult Blood MOD (NEG) Urine Leukocyte Esterase MOD (NEG) Urine Mucus MANY /lpf (OCC) Monocytes (%) (Auto) 9.7 % (0.0-8.0) Imaging Last Impressions Abdomen/Pelvis CT 08/30/17 0000 Signed Impressions: Service Date/Time: August 13:43 - CONCLUSION: The prostate is quite enlarged. Merritt catheter in place. Increased density within the bladder presumably large blood clot. No obvious bladder wall mass identified. Small lymph nodes throughout the retroperitoneum. Mathew Pantoja MD PE at Discharge GENERAL: This is a well-nourished, well-developed patient, in no apparent distress. CARDIOVASCULAR: Regular rate and rhythm without murmurs, gallops, or rubs. RESPIRATORY: Clear to auscultation. Breath sounds equal bilaterally. No wheezes , rales, or rhonchi. GASTROINTESTINAL: Abdomen soft, non-tender, nondistended. No hepato-splenomegaly , or palpable masses. No guarding. MUSCULOSKELETAL: Extremities without clubbing, cyanosis, or edema. No joint tenderness, effusion, or edema noted. No calf tenderness. Negative Homans sign bilaterally. NEUROLOGICAL: Awake and alert. Cranial nerves II through XII intact. Motor and sensory grossly within normal limits. Five out of 5 muscle strength in all muscle groups. Normal speech. merritt catheter in place with hematuria and no clots observed in bag. Hospital Course 1) Hematuria. Resolved ICD Code: R31.9 - Hematuria, unspecified Status: Acute Plan: Possibly secondary to supratherapeutic INR at 4.5 on admission and suspected UTI. Admit the patient to the medical floor. Consult urology, appreciate recommendations . Was seen by ARTUR Matute to DC patient and to follow up with him as ON in his Office on Sunday Continue CBI.DC as clear urine. (2) Urinary obstruction ICD Code: N13.9 - Obstructive and reflux uropathy, unspecified Status: Acute Plan: Merritt catheter placed. Continue. Urology consultation. (3) UTI (urinary tract infection) ICD Code: N39.0 - Urinary tract infection, site not specified Status: Acute (4) Elevated INR ICD Code: R79.1 - Abnormal coagulation profile Status: Acute Plan: INR 4.5. Coumadin held now hematuria resolved. Can cont Coumadin as OP. hematuria improving with CBI - Will not transfuse with FFP. Monitor PT/INR daily. (5) WILLIE (acute kidney injury) ICD Code: N17.9 - Acute kidney failure, unspecified Plan: Possibly secondary to urinary retention due to BPH. Start the patient on Flomax 0.4 mg p.o. at bedtime. Creatinine 1.32 on admission. No baseline creatinine for comparison. Merritt catheter placed, continue. Will place on IV fluids and monitor BUN and creatinine, history I's and O's. Avoid nephrotoxins (6) HTN (hypertension) ICD Code: I10 - Essential (primary) hypertension Plan: Blood pressure seems to be stable. Continue atenolol. (7) Hyperlipidemia ICD Code: E78.5 - Hyperlipidemia, unspecified Plan: Continue statin. Check fasting lipid profile. Assessment and Plan DVT prophylaxis: SCD Code Status Full code Discussed with the patient, nurse Plan to discharge home for follow-up with PCP and Dr. Hanson urology as outpatient on Sunday Pt Condition on Discharge: Stable Discharge Disposition: Discharge Home Discharge Time: > 30 minutes Discharge Instructions DIET: Follow Instructions for: Heart Healthy Diet Activities you can perform: Regular-No Restrictions Follow up Referrals: Appointment for Follow Up @ [facility] PCP Follow-up - 2-3 Days PCP Follow-up Urology - 09/04/17 with Joseluis Hanson MD New Medications: Levofloxacin (Levaquin) 750 Mg Tablet 750 MG PO DAILY for Infection, #6 TAB 0 Refills Continued Medications: Atenolol (Atenolol) 25 Mg Tab 25 MG PO DAILY for Blood Pressure Management, #30 TAB Digoxin (Digox) 0.25 Mg Tab 0.25 MG PO HS for Regulate Heart Beat, #30 TAB 0 Refills Ranitidine (Ranitidine) 150 Mg Tab 150 MG PO BID for Heartburn Management, #60 TAB 0 Refills Simvastatin (Simvastatin) 40 Mg Tab 40 MG PO HS for Cholesterol Management, #30 TAB 0 Refills Warfarin (Warfarin) 4 Mg Tab 4 MG PO MON,TUE,KAROLINE,FRI,SAT for Blood Clot Prevention, #30 TAB 0 Refills Warfarin (Warfarin) 2 Mg Tab 2 MG PO SUN,SUN for Blood Clot Prevention, #30 TAB 0 Refills Ashli Mckeon MD Aug 31, 2017 12:51
[2017-08-31] MEDS ORDERED: LEVOFLOXACIN 750 MG TAB PO ONE (14:15)
[2017-08-31] MEDS ORDERED: DIGOXIN 0.25 MG TAB PO SCH (21:00)
[2017-09-01] MEDS ORDERED: LEVOFLOXACIN 750 MG TAB PO SCH (09:00)
== END 2017-08-31 16:45 | disposition home or self-care (01) | DRG 813 ==
LOC: NEPD 11:14 → NEDH 15:13 → N04A 18:14
PROVIDERS: ADMIT Hospitalist; ATTEND Hospitalist
PROC: 3E1K78Z Irrigation of Genitourinary Tract using Irrigating Substance, Via Natural or Artificial Opening (ICD-10-PCS; principal; 2017-08-30)
DX: D68.32 Hemorrhagic disorder due to extrinsic circulating anticoagulants (principal); N17.9 Acute kidney failure, unspecified; N39.0 Urinary tract infection, site not specified; F03.90 Unspecified dementia, unspecified severity, without behavioral disturbance, psychotic disturbance, mood disturbance, and anxiety; N13.8 Other obstructive and reflux uropathy; I48.91 Unspecified atrial fibrillation; R31.0 Gross hematuria; T45.515A Adverse effect of anticoagulants, initial encounter; E78.5 Hyperlipidemia, unspecified; K21.9 Gastro-esophageal reflux disease without esophagitis; I10 Essential (primary) hypertension; Z90.79 Acquired absence of other genital organ(s); Z86.73 Personal history of transient ischemic attack (TIA), and cerebral infarction without residual deficits; Z85.828 Personal history of other malignant neoplasm of skin; Z87.442 Personal history of urinary calculi
CPT/HCPCS: 51798; 74176; 80048; 80053; 81001; 83605; 85025; 85610; 86850; 86900; 86901; 87086; 96360; 96372; J0696; J3430; J7030